=== PATIENT | male | born 1965 | race Caucasian/White ===

== ENCOUNTER → 2018-05-25 | Outpatient (CLI) | payer BC ==
--- NOTE | 2018-05-25 17:21 | PCVCIMAG ---
APPROVED REPORT Study performed: 05/25/2018 15:57:40 Exam: Stress Echocardiogram Indication: Hypertension,Peripheral cyanosis Patient Location: Echo lab Stress Nurse: Joan Scott RN Room #: 2 Status: routine Ht: 6 ft 1 in HR: 56 bpm BP: 136/92 mmHg Rhythm: NSR with sinus arrhythmia Medical History Medical History: HTN,peripheral cyanosis Cardiac Risk Factors: HTN Previous Cardiac Procedures: none Pretest Chest Pain Characteristics: No chest pain Exercise History: Physically active Procedure The patient underwent an Exercise Stress Test using the Dixon Protocol. Blood pressure, heart rate, and EKG were monitored. An Echocardiogram was performed by facilities operations technician in four stages in quad fashion. At peak stress, four selected images were obtained and placed side by side with resting images for comparison. Stress Test Details Stress Test: Exercise stress testing was performed using a Dixon protocol. HR Resting HR: 56 bpmMax Heart Rate (APMHR): 165 bpm Max HR Achieved: 187 bpmTarget HR (85% APMHR): 140 bpm % of APMHR: 113 Recovery HR: 102 bpm HR response to stress: Normal HR response to stress BP Resting BP: 136/92 mmHg Max BP: 192/90 mmHg Recovery BP: 150/88 mmHg ECG Resting ECG: Sinus Rhythm with sinus arrhythmia Stress ECG: Sinus Rhythm ST Change: Normal Maximum ST Deviation: 0 mm Arrhythmia: rare PVCs, occ PACs Recovery ECG: Sinus Rhythm Recovery ST Change: Normal Recovery ST Deviation: 0 mm Recovery Arrhythmia: None Clinical Reason for Termination: Maximal effort Stress Symptoms: Leg Fatigue Exercise duration: 15 min 31 sec Highest Stage Achieved: Stage 6: 5.5 mph at 20% grade. Exercise capacity: 18.7 METs Overall Exercise Capacity for Age: Excellent Scale: Active Angina Score: None No complications. Stress ECG Conclusion The patient exercised according to the DIXON protocol for 15:31 mins; achieving a work level of 18.7 METS. The resting heart rate of 56 bpm brandy to a maximum heart rate of 187 bpm. This value represent 113% of the maximal, age-predicted heart rate. The resting blood pressure of 136/92 mmHg, brandy to a maximum blood pressure of 192/90 mmHg. The exercise test was stopped due to fatigue. Bonds Treadmill Score is 15.0 which is Low risk. Pre-Stress Echo The resting Echocardiogram showed normal left ventricular contractility with an estimated Ejection Fraction of about 55-60%. Normal wall motion in all segments on baseline images. Post-Stress Echo The stress Echocardiogram showed normal left ventricular contractility with an estimated Ejection Fraction of about 65-70%. Normal augmentation of wall motion in all segments on post stress images. Clinical No clinical or ECG evidence for ischemia. Conclusion Clinical Response: Non-ischemic Exercise Capacity: Superior Stress ECG Response: Non-ischemic Stress Echo Images: Non-ischemic No clinical, EKG or echocardiographic evidence for ischemia. No echocardiographic evidence for exercise induced ischemia. Normal stress echocardiogram with maximal exercise stress. Test negative for ASD/PFO - negative bubble study No prior study available for comparison. <Conclusion> No clinical, EKG or echocardiographic evidence for ischemia. No echocardiographic evidence for exercise induced ischemia. Normal stress echocardiogram with maximal exercise stress. Test negative for ASD/PFO - negative bubble study
== END | disposition home or self-care (01) ==
LOC: PCVCIMAG 16:34
PROVIDERS: ATTEND Internal Medicine
DX: R55 Syncope and collapse (principal); I10 Essential (primary) hypertension; E78.5 Hyperlipidemia, unspecified
CPT/HCPCS: 93325; 93351